=== PATIENT | male | born 1980 | race Caucasian/White ===

== ENCOUNTER 2017-09-05 15:43 | Emergency (ER) | payer MEDICARE, MEDICAID ==
[~2017-09-05] VITALS: Ht 167.6 cm; Wt 73.0 kg
[~2017-09-05 15:43] MED LIST: CINA30TA PO; COL100C PO; HYDR1TAB PO; LISI-222 PO; SEVE800T8 PO
[2017-09-05 15:45] VITALS: BP 147/113
[2017-09-05] MEDS ORDERED: HYDROcodone/acetaminophen 10/325mg tab PO ONE (15:50)
[2017-09-05] MEDS ORDERED: HYDR-3965 PO (18:31)
[2017-09-08] MEDS ORDERED: HYDR-3973 PO (20:06)
== END 2017-09-05 18:43 | disposition home or self-care (01) ==
LOC: ER 15:44
DX: S20.222A Contusion of left back wall of thorax, initial encounter (principal); S20.221A Contusion of right back wall of thorax, initial encounter; M25.522 Pain in left elbow; M25.521 Pain in right elbow; M25.552 Pain in left hip; G89.29 Other chronic pain; I12.0 Hypertensive chronic kidney disease with stage 5 chronic kidney disease or end stage renal disease; N18.6 End stage renal disease; Z99.2 Dependence on renal dialysis; Z79.899 Other long term (current) drug therapy; W01.0XXA Fall on same level from slipping, tripping and stumbling without subsequent striking against object, initial encounter; Y93.01 Activity, walking, marching and hiking; Y92.85 Railroad track as the place of occurrence of the external cause; Y99.8 Other external cause status
CPT/HCPCS: 71250; 73080; 74176; 99284

== ENCOUNTER 2017-11-15 12:58 | Emergency (ER) | payer MEDICARE, MEDICAID ==
[~2017-11-15] VITALS: Ht 5535.5 cm; Wt 70.0 kg
[~2017-11-15 12:58] MED LIST changes: +ONDA4TAB6 PO
[2017-11-15 13:42] VITALS: BP 158/104
[2017-11-15] MEDS ORDERED: PENI-88 PO (14:34)
[2017-11-15] MEDS ORDERED: acetaminophen 325mg tablet PO ONE (14:50)
== END 2017-11-15 14:57 | disposition home or self-care (01) ==
LOC: ER 13:02
DX: K02.9 Dental caries, unspecified (principal); I12.9 Hypertensive chronic kidney disease with stage 1 through stage 4 chronic kidney disease, or unspecified chronic kidney disease; N18.9 Chronic kidney disease, unspecified; G89.29 Other chronic pain; Z99.2 Dependence on renal dialysis; Z79.899 Other long term (current) drug therapy
CPT/HCPCS: 99283

== ENCOUNTER 2018-02-28 07:42 | Emergency (ER) | payer MEDICARE, MEDICAID ==
[~2018-02-28] VITALS: Ht 170.2 cm; Wt 71.4 kg
[~2018-02-28 07:42] MED LIST changes: +HYDR-569 PO
[2018-02-28 07:48] VITALS: BP 196/106
[2018-02-28] MEDS ORDERED: PENI250T2 PO (08:09)
[2018-02-28] MEDS ORDERED: acetaminophen 325mg tablet PO ONE (08:20)
== END 2018-02-28 08:24 | disposition home or self-care (01) ==
LOC: ER 07:43
DX: K02.9 Dental caries, unspecified (principal); R11.0 Nausea; I12.9 Hypertensive chronic kidney disease with stage 1 through stage 4 chronic kidney disease, or unspecified chronic kidney disease; N18.9 Chronic kidney disease, unspecified; G89.29 Other chronic pain; Z99.2 Dependence on renal dialysis; Z79.899 Other long term (current) drug therapy
CPT/HCPCS: 99284

== ENCOUNTER 2019-08-15 18:07 | Emergency (ER) | payer MEDICARE, MEDICAID ==
[~2019-08-15] VITALS: Ht 170.2 cm; Wt 74.3 kg
[~2019-08-15 18:07] MED LIST changes: +HYDR-4383 PO; -HYDR-569 PO
[2019-08-15 18:55] LABS: BASOPHILS # (AUTO) 0.1 X10'3 (0-0.2); BASOPHILS % (AUTO) 0.9 % (0-1); EOSINOPHILS # (AUTO) 0.1 X10'3 (0-0.9); LYMPHOCYTES # (AUTO) 1.6 X10'3 (1.1-4.8); LYMPHOCYTES % (AUTO) 21.9 % (21-51); MEAN CORPUSCULAR HEMOGLOBIN 33.7 PG (27.0-31.0); MEAN CORPUSCULAR HGB CONC 33.3 g/dL (33.0-36.5); MEAN PLATELET VOLUME 8.4 FL (7.4-10.4); MONOCYTES # (AUTO) 0.6 X10'3 (0-0.9); MONOCYTES % (AUTO) 7.9 % (2-12); NEUTROPHILS # (AUTO) 4.9 X10'3 (1.8-7.7); NEUTROPHILS % (AUTO) 68.3 % (42-75); PLATELET COUNT 258 X10'3 (140-440); RED BLOOD COUNT 2.97 X10'6 (4.70-6.10); RED CELL DISTRIBUTION WIDTH 18.7 % (11.5-14.5); WHITE BLOOD COUNT 7.2 X10'3 (4.5-11.0)
[2019-08-15 19:09] LABS: ALANINE AMINOTRANSFERASE 72 U/L (12-78); ALBUMIN 2.9 G/DL (3.4-5.0); ALBUMIN/GLOBULIN RATIO 0.7 (1.1-1.5); ALKALINE PHOSPHATASE 254 IU/L (46-116); ANION GAP 8 (8-16); ASPARTATE AMINO TRANSFERASE 31 U/L (10-37); BILIRUBIN,TOTAL 1.1 MG/DL (0.1-1.0); BLOOD UREA NITROGEN 47 MG/DL (7-18); BUN/CREATININE RATIO 7.7 (5.4-32.0); CALCIUM 9.5 MG/DL (8.5-10.1); CHLORIDE 96 MMOL/L (99-107); CREATININE 6.12 MG/DL (0.60-1.10); GLUCOSE 108 MG/DL (70-104); POTASSIUM 4.4 MMOL/L (3.5-5.1); SODIUM 137 MMOL/L (135-145); TOTAL PROTEIN 7.2 G/DL (6.4-8.2); eGFR 10 ML/MIN
[2019-08-15 19:19] LABS: ANISOCYTOSIS 2+
[2019-08-15 19:33] LABS: HYPOCHROMASIA 1+; PLATELET ESTIMATE NORMAL
[2019-08-15] MEDS ORDERED: metoprolol tartrate 1mg/ml inj IV ONE (19:40)
[2019-08-15] MEDS ORDERED: aspirin 81mg tab.chew PO ONE (19:40)
[2019-08-15] MEDS ORDERED: furosemide 10 MG/1 ML 10ml inj IV ONE (19:55)
[2019-08-15] MEDS ORDERED: acetaminophen 325mg tablet PO ONE (20:45)
[2019-08-15 21:05] VITALS: BP 117/76
== END 2019-08-15 21:07 | disposition home or self-care (01) ==
LOC: ER 18:07
DX: I31.3 Pericardial effusion (noninflammatory) (principal); R07.89 Other chest pain; R42 Dizziness and giddiness; I12.0 Hypertensive chronic kidney disease with stage 5 chronic kidney disease or end stage renal disease; N18.6 End stage renal disease; G89.29 Other chronic pain; Z99.2 Dependence on renal dialysis; Z98.890 Other specified postprocedural states; Z79.899 Other long term (current) drug therapy
CPT/HCPCS: 71045; 80053; 84484; 85025; 93005; 99284; J1940

== ENCOUNTER 2019-10-09 11:17 | Emergency (ER) | payer MEDICARE, MEDICAID ==
[~2019-10-09] VITALS: Ht 152.4 cm; Wt 72.7 kg
[~2019-10-09 11:17] MED LIST changes: -CINA30TA PO; +CLON0.3T PO; +DOXY-327 PO; -HYDR-4383 PO; -HYDR1TAB PO; +LABE300T2 PO; -LISI-222 PO; +LISI40TA4 PO; +NICO-631 TD; +NIFE60TA80 PO; +OMEP40CA13 PO; +VANC5VIA PO
[2019-10-09] MEDS ORDERED: HYDROcodone/acetaminophen 5mg/325mg tablet PO ONE (12:05)
[2019-10-09 12:33] LABS: BASOPHILS % (AUTO) 0.6 % (0-1); EOSINOPHILS # (AUTO) 0.1 X10'3 (0-0.9); EOSINOPHILS % (AUTO) 0.8 % (0-6); HEMATOCRIT 36.7 % (42.0-52.0); HEMOGLOBIN 12.1 g/dl (14.0-17.9); LYMPHOCYTES # (AUTO) 1.4 X10'3 (1.1-4.8); MEAN CORPUSCULAR HEMOGLOBIN 31.8 PG (27.0-31.0); MEAN CORPUSCULAR VOLUME 96.4 FL (78-98); MEAN PLATELET VOLUME 7.6 FL (7.4-10.4); MONOCYTES # (AUTO) 0.6 X10'3 (0-0.9); MONOCYTES % (AUTO) 7.3 % (2-12); NEUTROPHILS # (AUTO) 6.4 X10'3 (1.8-7.7); NEUTROPHILS % (AUTO) 75.3 % (42-75); PLATELET COUNT 371 X10'3 (140-440); RED BLOOD COUNT 3.81 X10'6 (4.70-6.10); RED CELL DISTRIBUTION WIDTH 17.9 % (11.5-14.5); WHITE BLOOD COUNT 8.5 X10'3 (4.5-11.0)
[2019-10-09 12:47] LABS: PARTIAL THROMBOPLASTIN TIME 31 SECONDS (22-32)
[2019-10-09 12:49] LABS: ALANINE AMINOTRANSFERASE 10 U/L (12-78); ALBUMIN 2.4 G/DL (3.4-5.0); ALBUMIN/GLOBULIN RATIO 0.5 (1.1-1.5); ALKALINE PHOSPHATASE 292 IU/L (46-116); ANION GAP 9 (8-16); ASPARTATE AMINO TRANSFERASE 13 U/L (10-37); BILIRUBIN,TOTAL 0.9 MG/DL (0.1-1.0); BLOOD UREA NITROGEN 53 MG/DL (7-18); BUN/CREATININE RATIO 7.7 (5.4-32.0); CALCIUM 9.3 MG/DL (8.5-10.1); CHLORIDE 94 MMOL/L (99-107); CREATININE 6.88 MG/DL (0.60-1.10); GLUCOSE 107 MG/DL (70-104); LIPASE 67 U/L (73-393); POTASSIUM 5.4 MMOL/L (3.5-5.1); SODIUM 135 MMOL/L (135-145); TOTAL CARBON DIOXIDE 32.5 MMOL/L (24-32); TOTAL PROTEIN 6.9 G/DL (6.4-8.2); eGFR 9 ML/MIN
[2019-10-09 14:37] VITALS: BP 117/86
[2019-10-09] MEDS ORDERED: HYDR-4383 PO (18:45)
== END 2019-10-09 19:20 | disposition home or self-care (01) ==
LOC: ER 11:18
DX: K70.31 Alcoholic cirrhosis of liver with ascites (principal); L08.89 Other specified local infections of the skin and subcutaneous tissue; G89.29 Other chronic pain; I12.0 Hypertensive chronic kidney disease with stage 5 chronic kidney disease or end stage renal disease; N18.6 End stage renal disease; M79.671 Pain in right foot; Z99.2 Dependence on renal dialysis; Z79.899 Other long term (current) drug therapy
CPT/HCPCS: 36415; 49083; 73630; 80053; 82140; 83690; 85025; 85610; 85730; 99284; 99285

== ENCOUNTER 2019-11-02 10:36 | Emergency (ER) | payer MEDICARE, MEDICAID ==
[~2019-11-02] VITALS: Ht 170.2 cm; Wt 68.2 kg
[~2019-11-02 10:36] MED LIST changes: +HYDR-4383 PO
[2019-11-02] MEDS ORDERED: ibuprofen tablet 400 MG TABLET PO ONE (12:50)
[2019-11-02 12:51] LABS: BASOPHILS % (AUTO) 0.4 % (0-1); EOSINOPHILS # (AUTO) 0.1 X10'3 (0-0.9); EOSINOPHILS % (AUTO) 0.9 % (0-6); HEMATOCRIT 43.1 % (42.0-52.0); HEMOGLOBIN 13.9 g/dl (14.0-17.9); LYMPHOCYTES # (AUTO) 1.4 X10'3 (1.1-4.8); MEAN CORPUSCULAR HGB CONC 32.3 g/dL (33.0-36.5); MEAN CORPUSCULAR VOLUME 96.1 FL (78-98); MEAN PLATELET VOLUME 8.6 FL (7.4-10.4); MONOCYTES # (AUTO) 0.6 X10'3 (0-0.9); MONOCYTES % (AUTO) 8.2 % (2-12); NEUTROPHILS # (AUTO) 4.8 X10'3 (1.8-7.7); NEUTROPHILS % (AUTO) 69.5 % (42-75); PLATELET COUNT 268 X10'3 (140-440); RED BLOOD COUNT 4.48 X10'6 (4.70-6.10); RED CELL DISTRIBUTION WIDTH 18.6 % (11.5-14.5); WHITE BLOOD COUNT 6.9 X10'3 (4.5-11.0)
[2019-11-02 13:07] LABS: ALANINE AMINOTRANSFERASE 20 U/L (12-78); ALBUMIN 2.1 G/DL (3.4-5.0); ALBUMIN/GLOBULIN RATIO 0.5 (1.1-1.5); ALKALINE PHOSPHATASE 395 IU/L (46-116); ANION GAP -1 (8-16); ASPARTATE AMINO TRANSFERASE 31 U/L (10-37); BILIRUBIN,TOTAL 0.9 MG/DL (0.1-1.0); BLOOD UREA NITROGEN 23 MG/DL (7-18); BUN/CREATININE RATIO 5.1 (5.4-32.0); CHLORIDE 97 MMOL/L (99-107); CREATININE 4.54 MG/DL (0.60-1.10); GLUCOSE 110 MG/DL (70-104); LIPASE 61 U/L (73-393); POTASSIUM 4.4 MMOL/L (3.5-5.1); SODIUM 137 MMOL/L (135-145); TOTAL PROTEIN 6.7 G/DL (6.4-8.2); eGFR 14 ML/MIN
[2019-11-02 13:08] LABS: ANISOCYTOSIS 2+; PLATELET ESTIMATE NORMAL
[2019-11-02 13:09] LABS: TOTAL CARBON DIOXIDE 40.9 MMOL/L (24-32)
[2019-11-02 13:44] VITALS: BP 125/93
--- NOTE | 2019-11-02 14:06 | NUR ---
4,500ml of fluid pulled off with peracentesis.
== END 2019-11-02 14:27 | disposition home or self-care (01) ==
LOC: EDUNIT# 10:36 → ER 10:38
DX: R10.84 Generalized abdominal pain (principal); R18.8 Other ascites; R06.02 Shortness of breath; I12.0 Hypertensive chronic kidney disease with stage 5 chronic kidney disease or end stage renal disease; N18.6 End stage renal disease; G89.29 Other chronic pain; F12.90 Cannabis use, unspecified, uncomplicated; Z99.2 Dependence on renal dialysis; Z79.899 Other long term (current) drug therapy
CPT/HCPCS: 36415; 49083; 80053; 83690; 85025; 99285

== ENCOUNTER 2019-11-11 09:51 | Emergency (ER) | payer MEDICARE, MEDICAID ==
[~2019-11-11] VITALS: Ht 170.2 cm; Wt 73.3 kg
[2019-11-11] MEDS ORDERED: LIDOcaine 1% W/epiNEPHrine 1:100,000 20ml vial SQ ONE (10:25)
[2019-11-11] MEDS ORDERED: morphine 4 MG/ML inj SYRINge IV ONE (11:00)
[2019-11-11 13:21] VITALS: BP 139/92
== END 2019-11-11 13:23 | disposition home or self-care (01) ==
LOC: ER 09:52
DX: R18.8 Other ascites (principal); N18.6 End stage renal disease; I12.0 Hypertensive chronic kidney disease with stage 5 chronic kidney disease or end stage renal disease; G89.29 Other chronic pain; F12.90 Cannabis use, unspecified, uncomplicated; Z98.890 Other specified postprocedural states; Z99.2 Dependence on renal dialysis; Z79.2 Long term (current) use of antibiotics; Z79.899 Other long term (current) drug therapy
CPT/HCPCS: 49083; 96372; 99285; J2270

== ENCOUNTER 2019-11-14 11:23 | Inpatient (IN) | payer MEDICARE, MEDICAID ==
[~2019-11-14] VITALS: Ht 170.2 cm; Wt 71.8 kg
[2019-11-14] MEDS ORDERED: HYDROcodone/acetaminophen 10/325mg tab PO ONE (12:25)
--- NOTE | 2019-11-14 12:44 | NUR ---
PATIENT UNABLE TO GIVE UA DUE TO DIALYSIS, WILL CONTINUE TO MONITOR
[2019-11-14 12:46] LABS: BASOPHILS # (AUTO) 0.1 X10'3 (0-0.2); BASOPHILS % (AUTO) 1.3 % (0-1); EOSINOPHILS % (AUTO) 0.5 % (0-6); HEMATOCRIT 35.7 % (42.0-52.0); HEMOGLOBIN 11.8 g/dl (14.0-17.9); LYMPHOCYTES # (AUTO) 1.2 X10'3 (1.1-4.8); MEAN CORPUSCULAR HGB CONC 32.9 g/dL (33.0-36.5); MEAN CORPUSCULAR VOLUME 97.4 FL (78-98); MEAN PLATELET VOLUME 7.8 FL (7.4-10.4); MONOCYTES # (AUTO) 0.6 X10'3 (0-0.9); MONOCYTES % (AUTO) 6.8 % (2-12); NEUTROPHILS # (AUTO) 6.4 X10'3 (1.8-7.7); NEUTROPHILS % (AUTO) 77.4 % (42-75); PLATELET COUNT 331 X10'3 (140-440); RED BLOOD COUNT 3.67 X10'6 (4.70-6.10); RED CELL DISTRIBUTION WIDTH 20.8 % (11.5-14.5); WHITE BLOOD COUNT 8.3 X10'3 (4.5-11.0)
[2019-11-14 12:53] LABS: ALANINE AMINOTRANSFERASE 16 U/L (12-78); ALBUMIN 2.2 G/DL (3.4-5.0); ALBUMIN/GLOBULIN RATIO 0.5 (1.1-1.5); ALKALINE PHOSPHATASE 332 IU/L (46-116); ANION GAP 6 (8-16); ASPARTATE AMINO TRANSFERASE 19 U/L (10-37); BILIRUBIN,TOTAL 0.6 MG/DL (0.1-1.0); BLOOD UREA NITROGEN 43 MG/DL (7-18); CALCIUM 8.8 MG/DL (8.5-10.1); CHLORIDE 96 MMOL/L (99-107); CREATININE 4.79 MG/DL (0.60-1.10); GLUCOSE 133 MG/DL (70-104); LIPASE 197 U/L (73-393); POTASSIUM 5.5 MMOL/L (3.5-5.1); SODIUM 137 MMOL/L (135-145); TOTAL CARBON DIOXIDE 35.3 MMOL/L (24-32); TOTAL PROTEIN 6.6 G/DL (6.4-8.2); eGFR 14 ML/MIN
--- NOTE | 2019-11-14 12:56 | NUR ---
SPOKE WITH DR KRISHNA THAT PATIENT DOES NOT MAKE MUCH URINE, OK WITH NO UA, URINAL BY BEDSIDE IF ABLE TO URINATE
[2019-11-14] MEDS ORDERED: IBUP-1986 PO (14:47)
[2019-11-14 14:51] LABS: ANISOCYTOSIS 3+; PLATELET ESTIMATE NORMAL
[2019-11-14 14:52] LABS: LARGE PLATELETS FEW
--- NOTE | 2019-11-14 14:58 | NUR ---
HOSPITALIST HAS BEEN PAGED, PT IN WITH BERLIN RIOS
[2019-11-14] MEDS ORDERED: acetaminophen 325mg tablet PO PRN (16:25)
[2019-11-14] MEDS ORDERED: ondansetron/PF 4mg/2ml inj IV PRN (16:25)
[2019-11-14] MEDS ORDERED: oxyCODONE IR 5mg (immed. release) tablet PO ONE (17:15)
--- NOTE | 2019-11-14 18:14 | NUR ---
CALLED [facility]RI[facility] GLEASON [phone] RECEIVED VERBAL ORDER FOR CLEAR LIQUID, ORDER FAXED TO DIETARY
--- NOTE | 2019-11-14 18:32 | NUR ---
PT INFORMED ROSIBEL HEEL TOP LIFT SPLITTER VERBAL ORDER FOR CLEAR LIQUID DIET, PT UNDERSTANDS ADN AGREEABLE, PT IS AMBULATORY TO BATHROOM DOWN LOPEZ FROM BED 07, PT HAS INDEPENDENT STEADY GAIT.
--- NOTE | 2019-11-14 18:56 | NUR ---
Patient in room ED 7. I have received report from AXEL James in ED and had the opportunity to ask questions and will assume patient care when pt arrives to unit.
--- NOTE | 2019-11-14 19:05 | NUR ---
Patient up from ED, alert and oriented, VSS. Pt was able to walk stand by with cane.
[2019-11-14 19:45] VITALS: BP 142/95
[2019-11-14] MEDS ORDERED: hydrALAZINE 20mg/ml inj. IV PRN (20:00)
--- NOTE | 2019-11-14 21:27 | NUR ---
Pt refused HS BS at this time.
[2019-11-14] MEDS: morphine 2 MG/ML inj. syringe IV PRN (22:12)
[2019-11-14 22:29] LABS: CLARITY,URINE CLEAR (Clear); COLOR,URINE YELLOW (Yellow); GLUCOSE, URINE 100 mg/dl (Neg); KETONES,URINE NEGATIVE (Neg); LEUKOCYTE ESTERASE ,URINE TRACE (Neg); NITRITES, URINE NEGATIVE (Neg); OCCULT BLOOD,URINE TRACE-LYSED (Neg); PH,URINE >=9.0 (4.8-8.0); PROTEIN,URINE 100 mg/dl (Neg); UROBILINOGEN,URINE 0.2 E.U/dL (0.2-1.0)
[2019-11-14 22:30] LABS: UA COLLECTION TYPE NON-SPECIFIED
[2019-11-14 22:32] LABS: BACTERIA,URINE NONE SEEN /HPF (Neg); RBC,URINE NONE SEEN /HPF (0-2); SQUAMOUS EPITHELIAL CELL,UR FEW /LPF (FEW); WBC,URINE 0-4 /HPF (0-4)
[2019-11-15] VITALS: BP 115/76
[2019-11-15] MEDS: morphine 2 MG/ML inj. syringe IV PRN ×4 (02:08→14:18)
[2019-11-15 05:14] LABS: BASOPHILS # (AUTO) 0.1 X10'3 (0-0.2); BASOPHILS % (AUTO) 0.9 % (0-1); EOSINOPHILS # (AUTO) 0.1 X10'3 (0-0.9); EOSINOPHILS % (AUTO) 1.2 % (0-6); HEMATOCRIT 31.4 % (42.0-52.0); HEMOGLOBIN 10.5 g/dl (14.0-17.9); LYMPHOCYTES # (AUTO) 1.4 X10'3 (1.1-4.8); LYMPHOCYTES % (AUTO) 20.3 % (21-51); MEAN CORPUSCULAR HEMOGLOBIN 32.8 PG (27.0-31.0); MEAN CORPUSCULAR HGB CONC 33.4 g/dL (33.0-36.5); MEAN CORPUSCULAR VOLUME 98.1 FL (78-98); MEAN PLATELET VOLUME 7.9 FL (7.4-10.4); MONOCYTES # (AUTO) 0.5 X10'3 (0-0.9); MONOCYTES % (AUTO) 7.9 % (2-12); NEUTROPHILS # (AUTO) 4.7 X10'3 (1.8-7.7); NEUTROPHILS % (AUTO) 69.7 % (42-75); PLATELET COUNT 320 X10'3 (140-440); RED CELL DISTRIBUTION WIDTH 20.9 % (11.5-14.5); WHITE BLOOD COUNT 6.8 X10'3 (4.5-11.0)
[2019-11-15 05:29] LABS: PARTIAL THROMBOPLASTIN TIME 29 SECONDS (22-32)
[2019-11-15 05:36] LABS: ALANINE AMINOTRANSFERASE 12 U/L (12-78); ALBUMIN 2.1 G/DL (3.4-5.0); ALBUMIN/GLOBULIN RATIO 0.5 (1.1-1.5); ALKALINE PHOSPHATASE 298 IU/L (46-116); ANION GAP 4 (8-16); ASPARTATE AMINO TRANSFERASE 17 U/L (10-37); BILIRUBIN,TOTAL 0.6 MG/DL (0.1-1.0); BLOOD UREA NITROGEN 60 MG/DL (7-18); CALCIUM 8.9 MG/DL (8.5-10.1); CHLORIDE 97 MMOL/L (99-107); CREATININE 5.47 MG/DL (0.60-1.10); GLUCOSE 97 MG/DL (70-104); MAGNESIUM 1.8 MG/DL (1.5-2.4); SODIUM 137 MMOL/L (135-145); TOTAL CARBON DIOXIDE 35.9 MMOL/L (24-32); TOTAL PROTEIN 6.3 G/DL (6.4-8.2); eGFR 12 ML/MIN
--- NOTE | 2019-11-15 06:22 | NUR ---
Problems reprioritized. Patient report given, questions answered & plan of care reviewed with AXEL Patel.
[2019-11-15] MEDS ORDERED: epoetin 20,000 units/ml inj IV ONE (08:00)
[2019-11-15] MEDS ORDERED: normal saline 1000ml 250 ML IV PRN (08:00)
[2019-11-15] MEDS ORDERED: heparin 1,000unit/ml 10ml vial 10 ML IV ONE (08:00)
[2019-11-15] MEDS ORDERED: LIDOcaine 1% (10mg/ml) 2ml vial SQ ONE (08:00)
[2019-11-15] MEDS ORDERED: albumin (human) 25% 100ml IV 100 ML IV PRN (08:00)
[2019-11-15] MEDS ORDERED: nicotine 21mg patch - 24 hr TD SCH (09:25)
[2019-11-15 09:35] LABS: ANISOCYTOSIS 3+; PLATELET ESTIMATE NORMAL
[2019-11-15 09:37] LABS: LARGE PLATELETS FEW
[2019-11-15 11:00] VITALS: BP 133/96
[2019-11-15] MEDS ORDERED: NICO-687 TD (12:28)
--- NOTE | 2019-11-15 15:06 | NUR ---
Nutrition consult re: "recent wt loss, education on renal diet". Current scaled wt is stable with scaled wt hx, however pt s/p several paracentesis and with ESRD on HD, likely wt will fluctuate d/t changes in fluid status. Pt denied wt loss or decreased appetite in malnutrition risk screen with RN. Pt seen at bedside reports UBW of 68 kg however occasionally with a dry wt of 63 kg, current scaled wt is 71.8 kg. Pt confirms that his weight fluctuates d/t fluid retention and currently endorsing a good appetite. RD reviewed alternative options for when pt with increased thirst. Pt states he is going to try to further limit his fluid intake. Pt with no significant decrease in muscle strength or edema. Pt currently does not meet criteria for malnutrition. Patient's K and Phos are currently elevated. Pt reports he previously was taking Renvela however stopped about a month ago because he ran out. RD strongly encouraged to f/u with his MD about getting a Phos binder. Pt declined written education about K and Phos containing foods stating he pretty much already knows as he has been on HD for 13 years. Pt states he sees an outpatient RD at dialysis. Pt provided with RD contact information and encouraged to f/u with outpatient RD. Pt denies food allergies and reports difficulty chewing however declines texture modification at this time as he is pending discharge. Pt denies constipation/diarrhea. Will continue to follow. Addendum: 11/15/19 at [address] Amended: Links added.
--- NOTE | 2019-11-15 17:09 | NUR ---
Patient states that he understands all discharge instructions and will follow up as directed. IV was removed with canula intact. Pt was safely wheeled out to transportation and helped into vehicle.
--- NOTE | 2019-11-19 09:56 | NUR ---
Case Management DC follow up: unable to contact, VM not set up
== END 2019-11-15 16:58 | disposition home or self-care (01) | DRG 432 ==
LOC: ER 11:23 → ED HOLD 16:21 → SUR 3N 19:06
PROC: 5A1D70Z Performance of Urinary Filtration, Intermittent, Less than 6 Hours Per Day (ICD-10-PCS; principal; 2019-11-15)
DX: K74.60 Unspecified cirrhosis of liver (principal); N18.6 End stage renal disease; R18.8 Other ascites; I12.0 Hypertensive chronic kidney disease with stage 5 chronic kidney disease or end stage renal disease; S91.301A Unspecified open wound, right foot, initial encounter; X58.XXXA Exposure to other specified factors, initial encounter; F12.90 Cannabis use, unspecified, uncomplicated; F17.210 Nicotine dependence, cigarettes, uncomplicated; K72.90 Hepatic failure, unspecified without coma; G89.29 Other chronic pain; Z99.2 Dependence on renal dialysis; Z79.899 Other long term (current) drug therapy; Y93.89 Activity, other specified; Y92.89 Other specified places as the place of occurrence of the external cause; Y99.8 Other external cause status
CPT/HCPCS: 36415; 74176; 80053; 81001; 82948; 83690; 83735; 84100; 85025; 85610; 85730; 87081; 87088; 99285; G0257; G0378; J1644; J2001; J2270; J2405

== ENCOUNTER 2019-11-24 10:16 | Emergency (ER) | payer MEDICARE, MEDICAID ==
[~2019-11-24] VITALS: Ht 170.2 cm; Wt 72.0 kg
[~2019-11-24 10:16] MED LIST changes: -CLON0.3T PO; -COL100C PO; -DOXY-327 PO; -HYDR-4383 PO; +IBUP-1986 PO; -LABE300T2 PO; +LIDOcaine 1% W/epiNEPHrine 1:100,000 20ml vial ONE; -LISI40TA4 PO; -NICO-631 TD; +NICO-687 TD; -NIFE60TA80 PO; -OMEP40CA13 PO; -ONDA4TAB6 PO; -SEVE800T8 PO; -VANC5VIA PO
--- NOTE | 2019-11-24 10:43 | NUR ---
CAME IN FOR ABD PAIN STATES THIS IS NOT THE FIRST TIME HE GETS [facility]ILD UP AND NEEDS TO GET TAPPED HE HAS BEEN TAPPED ABOUT 9 TIMES LAST WAS ABOUT 2 WEEKS AGO
[2019-11-24] MEDS ORDERED: fentaNYL/PF 50MCG/1 ML 2ML syringe IV ONE (10:50)
--- NOTE | 2019-11-24 11:32 | NUR ---
PARITISIES DONE BY DR VARGAS
--- NOTE | 2019-11-24 11:52 | NUR ---
6L REMOVIED FROM ABD
[2019-11-24 12:02] VITALS: BP 122/99
== END 2019-11-24 12:05 | disposition home or self-care (01) ==
LOC: ER 10:17
DX: R18.8 Other ascites (principal); R06.02 Shortness of breath; I12.9 Hypertensive chronic kidney disease with stage 1 through stage 4 chronic kidney disease, or unspecified chronic kidney disease; N18.9 Chronic kidney disease, unspecified; G89.29 Other chronic pain; F12.90 Cannabis use, unspecified, uncomplicated
CPT/HCPCS: 49083; 96374; 99285; J3010

== ENCOUNTER 2020-01-13 22:43 | Emergency (ER) | payer MEDICARE, MEDICAID ==
[~2020-01-13] VITALS: Ht 170.2 cm; Wt 75.0 kg
[~2020-01-13 22:43] MED LIST changes: -IBUP-1986 PO; -LIDOcaine 1% W/epiNEPHrine 1:100,000 20ml vial ONE; +OMEP40CA13 PO; +SEVE800T8 PO
[2020-01-13 23:26] LABS: BASOPHILS % (AUTO) 0.4 % (0-1); EOSINOPHILS % (AUTO) 0.6 % (0-6); HEMATOCRIT 25.4 % (42.0-52.0); HEMOGLOBIN 8.4 g/dl (14.0-17.9); LYMPHOCYTES % (AUTO) 12.1 % (21-51); MEAN CORPUSCULAR HEMOGLOBIN 33.1 PG (27.0-31.0); MEAN CORPUSCULAR HGB CONC 33.1 g/dL (33.0-36.5); MEAN CORPUSCULAR VOLUME 99.9 FL (78-98); MEAN PLATELET VOLUME 7.1 FL (7.4-10.4); MONOCYTES # (AUTO) 0.6 X10'3 (0-0.9); MONOCYTES % (AUTO) 7.4 % (2-12); NEUTROPHILS # (AUTO) 6.6 X10'3 (1.8-7.7); NEUTROPHILS % (AUTO) 79.5 % (42-75); PLATELET COUNT 355 X10'3 (140-440); RED BLOOD COUNT 2.55 X10'6 (4.70-6.10); RED CELL DISTRIBUTION WIDTH 17.7 % (11.5-14.5); WHITE BLOOD COUNT 8.3 X10'3 (4.5-11.0)
[2020-01-13 23:43] LABS: ALANINE AMINOTRANSFERASE 10 U/L (12-78); ALBUMIN 1.3 G/DL (3.4-5.0); ALBUMIN/GLOBULIN RATIO 0.3 (1.1-1.5); ALKALINE PHOSPHATASE 355 IU/L (46-116); ANION GAP 13 (8-16); ASPARTATE AMINO TRANSFERASE 12 U/L (10-37); BILIRUBIN,TOTAL 0.5 MG/DL (0.1-1.0); BLOOD UREA NITROGEN 37 MG/DL (7-18); CALCIUM 8.1 MG/DL (8.5-10.1); CHLORIDE 102 MMOL/L (99-107); CREATININE 4.62 MG/DL (0.60-1.10); GLUCOSE 123 MG/DL (70-104); POTASSIUM 4.3 MMOL/L (3.5-5.1); SODIUM 139 MMOL/L (135-145); TOTAL CARBON DIOXIDE 24.2 MMOL/L (24-32); TOTAL PROTEIN 5.1 G/DL (6.4-8.2); eGFR 14 ML/MIN
[2020-01-14] MEDS ORDERED: CLON0.1T2 PO (01:41)
[2020-01-14] MEDS ORDERED: OXYC5TAB2 PO (01:41)
[2020-01-14] MEDS ORDERED: HYDROmorphone inj. 0.5 MG/0.5 ML DISP.SYRIN IV ONE (02:20)
[2020-01-14 03:32] VITALS: BP 119/85
== END 2020-01-14 03:35 | disposition home or self-care (01) ==
LOC: ER 22:44
DX: E83.59 Other disorders of calcium metabolism (principal); I13.2 Hypertensive heart and chronic kidney disease with heart failure and with stage 5 chronic kidney disease, or end stage renal disease; N18.6 End stage renal disease; G89.29 Other chronic pain; F17.200 Nicotine dependence, unspecified, uncomplicated; F12.90 Cannabis use, unspecified, uncomplicated; Z99.2 Dependence on renal dialysis; Z98.890 Other specified postprocedural states; Z88.6 Allergy status to analgesic agent; Z88.5 Allergy status to narcotic agent; Z88.8 Allergy status to other drugs, medicaments and biological substances; Z79.899 Other long term (current) drug therapy
CPT/HCPCS: 36415; 80053; 85025; 96374; 99284; J1170

== ENCOUNTER 2020-01-23 10:57 | Emergency (ER) | payer MEDICARE, MEDICAID ==
[~2020-01-23] VITALS: Ht 170.2 cm; Wt 77.3 kg
[~2020-01-23 10:57] MED LIST changes: +CLON0.1T2 PO; -NICO-687 TD; +OXYC5TAB2 PO
[2020-01-23] MEDS ORDERED: morphine 4 MG/ML inj SYRINge IM ONE (12:20)
[2020-01-23] MEDS ORDERED: albumin (human) 25% 100 ML IV solution IV ONE (13:30)
[2020-01-23 14:15] VITALS: BP 101/67
--- NOTE | 2020-01-23 14:37 | NUR ---
Pt stopped his Albumin and disconnected his IV line. Stated to me he wants his PIV discontinued and to wait for his ride in the ER lobby. Explained his need for albumin and requested to retake his BP. Pt refused, and stated "My BP is high from houw upset I am anyway". Discontinued pt's PIV and he wheeled himself into lobby without assistance without signing his discharge paperwork.
== END 2020-01-23 14:42 | disposition home or self-care (01) ==
LOC: ER 11:01
DX: R18.8 Other ascites (principal); E83.59 Other disorders of calcium metabolism; F12.90 Cannabis use, unspecified, uncomplicated; I12.0 Hypertensive chronic kidney disease with stage 5 chronic kidney disease or end stage renal disease; N18.6 End stage renal disease; Z99.2 Dependence on renal dialysis; Z98.890 Other specified postprocedural states; Z88.6 Allergy status to analgesic agent; Z88.8 Allergy status to other drugs, medicaments and biological substances; Z79.899 Other long term (current) drug therapy
CPT/HCPCS: 49083; 96365; 96372; 99285; J2270; P9047; 96374

== ENCOUNTER 2020-02-01 07:36 | Day surgery (SDC) | payer MEDICARE, MEDICAID ==
[~2020-02-01] VITALS: Ht 167.6 cm; Wt 72.0 kg
[2020-02-01] VITALS (7 sets, daily range): BP systolic 103–145; BP diastolic 74–96
[2020-02-01] MEDS ORDERED: albumin 25% 100mL bottle x 1 IV PRN (08:00)
[2020-02-01] MEDS ORDERED: normal saline 1000ml 1,000 ML IV PRN (08:00)
[2020-02-01] MEDS ORDERED: oxyCODONE IR 5mg (immed. release) tablet PO ONE (09:30)
== END 2020-02-01 11:46 ==
LOC: SSTAY O 07:36
PROVIDERS: ATTEND Radiology Diagnostic Radiology
DX: R18.8 Other ascites (principal); I12.0 Hypertensive chronic kidney disease with stage 5 chronic kidney disease or end stage renal disease; F12.90 Cannabis use, unspecified, uncomplicated; N18.6 End stage renal disease; Z79.899 Other long term (current) drug therapy; Z79.82 Long term (current) use of aspirin; F17.210 Nicotine dependence, cigarettes, uncomplicated; Z88.8 Allergy status to other drugs, medicaments and biological substances
CPT/HCPCS: 49083; C1729; P9047

== ENCOUNTER 2020-02-08 07:28 | Day surgery (SDC) | payer MEDICARE, MEDICAID ==
[2020-02-08] VITALS (7 sets, daily range): BP systolic 127–174; BP diastolic 82–110
[~2020-02-08] VITALS: Ht 167.6 cm; Wt 72.0 kg
[2020-02-08] MEDS ORDERED: normal saline 1000ml 1,000 ML IV PRN (07:50)
[2020-02-08] MEDS ORDERED: albumin 25% 100mL bottle x 1 IV PRN (07:50)
[2020-02-08] MEDS ORDERED: NIFE60TA80 PO (08:10)
[2020-02-08] MEDS ORDERED: MELA3CAP2 PO (08:10)
[2020-02-08] MEDS ORDERED: SENN-263 PO (08:10)
[2020-02-08] MEDS ORDERED: POLY119P2 PO (08:10)
[2020-02-08] MEDS ORDERED: [UNRECOGNIZED DRUG - CODE] SUBCUT (08:10)
[2020-02-08] MEDS ORDERED: ONDA4TAB6 PO (08:10)
[2020-02-08] MEDS ORDERED: ondansetron 4mg rapidly disintigrating tab PO ONE (08:45)
[2020-02-08] MEDS ORDERED: oxyCODONE SR 10mg (sust. release) tab PO ONE (08:55)
[2020-02-08] MEDS ORDERED: OXYC10TA47 PO (09:01)
== END 2020-02-08 10:10 | disposition home or self-care (01) ==
LOC: SSTAY O 07:28
PROVIDERS: ATTEND Radiology Vascular & Interventional Radiology
DX: R18.8 Other ascites (principal); I12.0 Hypertensive chronic kidney disease with stage 5 chronic kidney disease or end stage renal disease; N18.6 End stage renal disease; F17.210 Nicotine dependence, cigarettes, uncomplicated; G89.29 Other chronic pain; Z99.2 Dependence on renal dialysis; Z98.890 Other specified postprocedural states; Z79.899 Other long term (current) drug therapy; Z88.5 Allergy status to narcotic agent; Z88.8 Allergy status to other drugs, medicaments and biological substances
CPT/HCPCS: 49083; P9047

== ENCOUNTER 2020-02-15 06:34 | Day surgery (SDC) | payer MEDICARE, MEDICAID ==
[~2020-02-15] VITALS: Ht 167.6 cm; Wt 72.0 kg
[~2020-02-15 06:34] MED LIST changes: +MELA3CAP2 PO; +NIFE60TA80 PO; +ONDA4TAB6 PO; +OXYC10TA47 PO; -OXYC5TAB2 PO; +POLY119P2 PO; +SENN-263 PO; +[UNRECOGNIZED DRUG - CODE] SUBCUT
[2020-02-15 06:53] VITALS: BP 153/103
[2020-02-15] MEDS ORDERED: albumin 25% 100mL bottle x 1 IV PRN (07:05)
--- NOTE | 2020-02-15 08:40 | NUR ---
US only. pt procedure cancelled per Waylon VILLAFANA.
== END 2020-02-15 08:40 | disposition home or self-care (01) ==
LOC: SSTAY O 06:34
PROVIDERS: ATTEND Radiology Vascular & Interventional Radiology
DX: R18.8 Other ascites (principal); R14.0 Abdominal distension (gaseous); I12.0 Hypertensive chronic kidney disease with stage 5 chronic kidney disease or end stage renal disease; N18.6 End stage renal disease; G89.29 Other chronic pain; F17.210 Nicotine dependence, cigarettes, uncomplicated; F12.90 Cannabis use, unspecified, uncomplicated; Z99.2 Dependence on renal dialysis; Z98.890 Other specified postprocedural states; Z88.8 Allergy status to other drugs, medicaments and biological substances; Z91.018 Allergy to other foods; Z79.899 Other long term (current) drug therapy
CPT/HCPCS: 76705

== ENCOUNTER 2020-02-22 06:35 | Day surgery (SDC) | payer MEDICARE, MEDICAID ==
[2020-02-22] VITALS (10 sets, daily range): BP systolic 112–159; BP diastolic 51–106
[~2020-02-22] VITALS: Ht 167.6 cm; Wt 68.0 kg
[2020-02-22] MEDS ORDERED: albumin 25% 100mL bottle x 1 IV PRN (10:25)
--- NOTE | 2020-02-22 10:42 | NUR ---
Pt complaining of increased pain, Neto VILLAFANA notified. [facility] reported pt last took 2 10mg oxycodone at 0615 today, pt takes PRN pain medication Q4H. Order received from Neto VILLAFANA for 1 10mg oxycodone PO now.
[2020-02-22] MEDS ORDERED: oxyCODONE IR 5mg (immed. release) tablet PO ONE (10:45)
== END 2020-02-22 10:50 | disposition home or self-care (01) ==
LOC: SSTAY O 06:35
PROVIDERS: ATTEND Radiology Diagnostic Radiology
DX: R18.8 Other ascites (principal); I12.0 Hypertensive chronic kidney disease with stage 5 chronic kidney disease or end stage renal disease; N18.6 End stage renal disease; G89.29 Other chronic pain; F17.210 Nicotine dependence, cigarettes, uncomplicated; F12.90 Cannabis use, unspecified, uncomplicated; Z88.8 Allergy status to other drugs, medicaments and biological substances; Z79.899 Other long term (current) drug therapy
CPT/HCPCS: 49083